=== PATIENT | male | born 1975 | race Caucasian/White ===

== ENCOUNTER → 2019-01-27 05:54 | Outpatient (CLI) | payer OTHER, SELFPAY ==
[2013-10-21 10:42] VITALS: BMI 30.9
[2019-01-27 08:07] LABS: ALB/GLOB Ratio 1.1 RATIO (0.9-2.4); AST(SGOT) 31 U/L (15-37); Alanine Aminotransfer ALT/SGPT 58 U/L (16-61); Alkaline Phosphatase 64 U/L (45-117); Anion Gap 8 (5-15); BUN 16 mg/dL (7-18); BUN/Creat Ratio 18.2 RATIO (10-20); Calcium,Total 8.6 mg/dL (8.5-10.1); Chloride 108 mmol/L (98-107); Cholesterol 120 mg/dL (200); Creatinine, Serum 0.88 mg/dL (0.70-1.30); EST Glomerular Filtration Rate 101 mL/min (>60); Est Glom Filt Rate - Afr Amer 122 mL/min (>60); Globulin 3.6 g/dL (2.2-4.2); Glucose 94 mg/dL (74-106); High Density Lipoprotein 40 mg/dL; Protein, Total 7.6 g/dL (6.4-8.2); Sodium Level 143 mmol/L (136-145); Thyroid Stim Hormone (TSH) 3.02 uIU/mL (0.358-3.74); Triglycerides 145 mg/dL; Very Low Density Lipoprotein 29 mg/dL (5-40)
[2019-02-02 12:18] LABS: Vitamin D 1,25-Dihydroxy 41.1 pg/mL (19.9-79.3)
== END ==
PROVIDERS: Family Provider Family Medicine; PCP Family Medicine; Referring Provider Family Medicine; Visit Provider Family Medicine
DX: I10 Essential (primary) hypertension (principal); E78.5 Hyperlipidemia, unspecified
CPT/HCPCS: 36415; 80053; 80061; 82652; 84443

== ENCOUNTER → 2019-09-30 12:39 | Outpatient (CLI) | payer OTHER, SELFPAY ==
--- NOTE | 2019-09-30 12:59 | CT_ITS ---
STUDY: CT ABDOMEN AND PELVIS WITH CONTRAST REASON FOR EXAM: Male, 44 years old. Intermittent right lower quadrant pain for 2 weeks RADIATION DOSAGE (If Supplied By Facility): CTDIvol = ( 16.41 ) mGy, DLP = ( 1260.86 ) mGycm TECHNIQUE: Transaxial images were obtained from the dome of the diaphragm to the symphysis pubis with oral contrast. IV/Oral Isovue 300 100CC was administered. Sagittal and coronal images were reconstructed. Individualized dose optimization techniques were used for this CT. COMPARISON: None. FINDINGS: The visualized lung bases are unremarkable. The visualized portions of the heart are within normal limits. Normal liver. Normal gallbladder and extrahepatic biliary system. Normal spleen. Normal pancreas. Normal bilateral adrenal glands. Normal right kidney. Normal left kidney. Normal visualized stomach. Normal small intestine. Normal colon. The appendix is visualized and appears normal. Normal abdominal aorta. Normal inferior vena cava. Normal retroperitoneum. Normal urinary bladder. Normal abdominal wall. Normal osseous structures. CT/Abdomen/Pelvis WITH Contrast IMPRESSION: Normal enhanced CT of the abdomen and pelvis. Electronically Signed: Sridevi Cochran MD at 15:37 EDT , Service support ,
[2019-09-30 13:00] LABS: Absolute Lymphocyte Count 2.28 X10^3/uL (0.83-4.51); Absolute Neutrophil Count 4.7 X10^3/uL (2.0-7.7); Basophil# 0.04 X10^3/uL; Basophil% 0.5 % (0-1); Eosinophil# 0.16 X10^3/uL; Hematocrit 44.3 % (40-54); Hemoglobin 15.1 g/dL (13.0-16.5); Lymphocyte # 2.28 X10^3/ul (4.0); Mean Corp Hgb Conc 34.1 g/dL (32-36); Mean Corpuscular Hgb 29.6 pg (27.0-32.0); Mean Corpuscular Volume 86.9 fL (80-94); Mean Platelet Vol. 9.2 fl (6.2-12.0); Monocyte# 0.62 X10^3/uL; Monocyte% 7.9 % (0-10); NRBC Flagged by Analyzer 0 % (0-5); Neutrophil # 4.73 X10^3/uL (2.7-7.7); Neutrophil % 60.3 % (47-70); Platelet Count 316 K/mm3 (150-450); RBC Distribution Width CV 12.6 % (11.6-14.6); RBC Distribution Width SD 39.8 fl (35.1-43.9); White Blood Count 7.9 K/mm3 (4.4-11.0)
[2019-09-30 13:15] LABS: ALB/GLOB Ratio 1.2 RATIO (0.9-2.4); AST(SGOT) 30 U/L (15-37); Alanine Aminotransfer ALT/SGPT 50 U/L (16-61); Albumin, Serum 4.4 g/dL (3.2-5.0); Alkaline Phosphatase 78 U/L (45-117); Anion Gap 5 (5-15); BUN 10 mg/dL (7-18); BUN/Creat Ratio 11.8 RATIO (10-20); Calcium,Total 9.3 mg/dL (8.5-10.1); Chloride 106 mmol/L (98-107); Creatinine, Serum 0.84 mg/dL (0.70-1.30); EST Glomerular Filtration Rate 105 mL/min (>60); Est Glom Filt Rate - Afr Amer 127 mL/min (>60); Globulin 3.6 g/dL (2.2-4.2); Glucose 97 mg/dL (74-106); Potassium 3.8 mmol/L (3.5-5.1); Sodium Level 138 mmol/L (136-145)
== END ==
PROVIDERS: Family Provider Family Medicine; PCP Family Medicine; Referring Provider Family Medicine; Visit Provider Family Medicine
DX: R10.31 Right lower quadrant pain (principal)
CPT/HCPCS: 36415; 74177; 80053; 85025; Q9967

== ENCOUNTER → 2020-06-27 05:59 | Outpatient (CLI) | payer OTHER, SELFPAY ==
[2013-10-21 10:42] VITALS: BMI 30.9
[2020-06-27 07:28] LABS: ALB/GLOB Ratio 1.2 RATIO (0.9-2.4); AST(SGOT) 27 U/L (15-37); Alanine Aminotransfer ALT/SGPT 57 U/L (16-61); Albumin, Serum 4.1 g/dL (3.2-5.0); Alkaline Phosphatase 77 U/L (45-117); Anion Gap 4 (5-15); BUN 19 mg/dL (7-18); BUN/Creat Ratio 22.3 RATIO (10-20); Calcium,Total 9.3 mg/dL (8.5-10.1); Chloride 109 mmol/L (98-107); Cholesterol 158 mg/dL (200); Creatinine, Serum 0.85 mg/dL (0.70-1.30); EST Glomerular Filtration Rate 104 mL/min (>60); Est Glom Filt Rate - Afr Amer 126 mL/min (>60); Globulin 3.5 g/dL (2.2-4.2); Glucose 97 mg/dL (74-106); High Density Lipoprotein 35 mg/dL; Protein, Total 7.6 g/dL (6.4-8.2); Sodium Level 141 mmol/L (136-145); Triglycerides 588 mg/dL
== END ==
PROVIDERS: PCP Family Medicine; Referring Provider Family Medicine; Visit Provider Family Medicine
DX: E78.5 Hyperlipidemia, unspecified (principal)
CPT/HCPCS: 36415; 80053; 80061

== ENCOUNTER → 2020-08-18 07:26 | Outpatient (CLI) | payer OTHER, SELFPAY ==
[2020-08-18 08:48] LABS: Cholesterol 161 mg/dL (200); High Density Lipoprotein 39 mg/dL; Triglycerides 205 mg/dL; Very Low Density Lipoprotein 41 mg/dL (5-40)
== END ==
PROVIDERS: PCP Family Medicine; Referring Provider Family Medicine; Visit Provider Family Medicine
DX: E78.00 Pure hypercholesterolemia, unspecified (principal)
CPT/HCPCS: 36415; 80061

== ENCOUNTER → 2021-02-18 16:34 | Outpatient (CLI) | payer OTHER, SELFPAY ==
[2013-10-21 10:42] VITALS: BMI 30.9
--- NOTE | 2021-02-18 16:36 | RAD_ITS ---
STUDY: X-RAY - LEFT CALCANEUS REASON FOR EXAM: Male, 45 years old. left heel pain TECHNIQUE: 2 view(s) of the calcaneus were obtained. COMPARISON: None. FINDINGS: No acute fracture, dislocation or osseous destruction. Plantar spur. No significant soft tissue swelling. RAD/Calcaneus min 2 Views IMPRESSION: Left calcaneous intact Plantar spur Electronically Signed: Lio Dixon DO at 11:07 EDT Tel , Service support ,
== END ==
PROVIDERS: PCP Family Medicine; Referring Provider Family Medicine; Visit Provider Family Medicine
DX: M79.672 Pain in left foot (principal)
CPT/HCPCS: 73650

== ENCOUNTER → 2021-03-02 06:56 | Outpatient (CLI) | payer OTHER, SELFPAY ==
[2021-03-02 07:46] LABS: Anion Gap 3 (5-15); BUN 13 mg/dL (7-18); Calcium,Total 8.9 mg/dL (8.5-10.1); Chloride 106 mmol/L (98-107); Cholesterol 126 mg/dL (200); Creatinine, Serum 0.81 mg/dL (0.70-1.30); EST Glomerular Filtration Rate 109 mL/min (>60); Est Glom Filt Rate - Afr Amer 132 mL/min (>60); Glucose 103 mg/dL (74-106); High Density Lipoprotein 36 mg/dL; Potassium 3.8 mmol/L (3.5-5.1); Sodium Level 137 mmol/L (136-145); Triglycerides 245 mg/dL; Very Low Density Lipoprotein 49 mg/dL (5-40)
== END ==
PROVIDERS: PCP Family Medicine; Referring Provider Family Medicine; Visit Provider Family Medicine
DX: I10 Essential (primary) hypertension (principal)
CPT/HCPCS: 36415; 80048; 80061

== ENCOUNTER 2022-02-01 08:24 | Outpatient (CLI) | payer OTHER, SELFPAY ==
[2022-02-01 09:58] LABS: ALB/GLOB Ratio 1.2 RATIO (0.9-2.4); AST(SGOT) 29 U/L (15-37); Alanine Aminotransfer ALT/SGPT 62 U/L (16-61); Albumin, Serum 3.9 g/dL (3.2-5.0); Alkaline Phosphatase 71 U/L (45-117); Anion Gap 2 (5-15); BUN 14 mg/dL (7-18); BUN/Creat Ratio 15.6 RATIO (10-20); Calcium,Total 9.1 mg/dL (8.5-10.1); Chloride 109 mmol/L (98-107); Cholesterol 143 mg/dL (200); EST Glomerular Filtration Rate 97 mL/min (>60); Est Glom Filt Rate - Afr Amer 118 mL/min (>60); Globulin 3.3 g/dL (2.2-4.2); Glucose 104 mg/dL (74-106); High Density Lipoprotein 39 mg/dL; Potassium 4.1 mmol/L (3.5-5.1); Protein, Total 7.2 g/dL (6.4-8.2); Sodium Level 139 mmol/L (136-145); Triglycerides 218 mg/dL; Very Low Density Lipoprotein 44 mg/dL (5-40)
== END 2022-02-01 23:59 | disposition home or self-care (01) ==
LOC: LAB 08:25
PROVIDERS: PCP Family Medicine; Referring Provider Family Medicine; Visit Provider Family Medicine
DX: E78.5 Hyperlipidemia, unspecified (principal)
CPT/HCPCS: 36415; 80053; 80061

== ENCOUNTER → 2022-09-08 | Outpatient (CLI) | payer OTHER, SELFPAY ==
--- NOTE | 2022-09-08 17:05 | RAD_ITS ---
STUDY: X-RAY - LEFT SHOULDER REASON FOR EXAM: Male, 47 years old. Pain. TECHNIQUE: 4 view(s) of the shoulder. COMPARISON: None. FINDINGS: Normal glenohumeral articulation. Mild arthrosis of the AC joint. Normal acromion. Bone island of the proximal humerus. Scattered focal soft tissue calcifications. Normal visualized pulmonary apex. RAD/Shoulder min 2 Views IMPRESSION: Arthrosis of the AC joint with scattered soft tissue calcification. No acute finding or erosive change. Electronically Signed: Jose Armas, at 11:01 EDT ,
== END | disposition home or self-care (01) ==
LOC: MTRAD 17:03
PROVIDERS: PCP Family Medicine; Referring Provider Family Medicine; Visit Provider Family Medicine
DX: M25.512 Pain in left shoulder (principal)
CPT/HCPCS: 73030

== ENCOUNTER → 2022-10-09 | Outpatient (CLI) | payer OTHER, SELFPAY ==
[2022-10-09 10:13] LABS: Anion Gap 4 (5-15); BUN 15 mg/dL (7-18); BUN/Creat Ratio 17.3 RATIO (10-20); Calcium,Total 9.2 mg/dL (8.5-10.1); Chloride 106 mmol/L (98-107); Cholesterol 137 mg/dL (200); Creatinine, Serum 0.87 mg/dL (0.70-1.30); EST Glomerular Filtration Rate 101 mL/min (>60); Est Glom Filt Rate - Afr Amer 122 mL/min (>60); Glucose 99 mg/dL (74-106); High Density Lipoprotein 31 mg/dL; Potassium 4.4 mmol/L (3.5-5.1); Sodium Level 138 mmol/L (136-145); Triglycerides 386 mg/dL; Very Low Density Lipoprotein 77 mg/dL (5-40)
== END | disposition home or self-care (01) ==
LOC: LAB 07:00
PROVIDERS: PCP Family Medicine; Visit Provider Family Medicine
DX: Z00.00 Encounter for general adult medical examination without abnormal findings (principal)
CPT/HCPCS: 36415; 80048; 80061

== ENCOUNTER → 2022-11-27 | Outpatient (CLI) | payer OTHER, SELFPAY | END | disposition home or self-care (01) | PROVIDERS: PCP Family Medicine; Visit Provider Nurse Practitioner Acute Care | DX: G47.33 Obstructive sleep apnea (adult) (pediatric) (principal) | CPT/HCPCS: 95811 ==

== ENCOUNTER → 2022-12-18 | Outpatient (CLI) | payer OTHER, SELFPAY | END | disposition home or self-care (01) | LOC: SL 13:30 | PROVIDERS: PCP Family Medicine; Visit Provider Nurse Practitioner Acute Care | DX: G47.33 Obstructive sleep apnea (adult) (pediatric) (principal) ==

== ENCOUNTER → 2023-09-07 | Outpatient (CLI) | payer OTHER, SELFPAY ==
[2023-09-07 08:25] LABS: ALB/GLOB Ratio 1.1 RATIO (0.9-2.4); AST(SGOT) 26 U/L (15-37); Alanine Aminotransfer ALT/SGPT 49 U/L (16-61); Albumin, Serum 3.8 g/dL (3.2-5.0); Alkaline Phosphatase 78 U/L (45-117); Anion Gap 8 (5-15); BUN 15 mg/dL (7-18); BUN/Creat Ratio 19.2 RATIO (10-20); Calcium,Total 8.6 mg/dL (8.5-10.1); Chloride 106 mmol/L (98-107); Cholesterol 143 mg/dL (200); Creatinine, Serum 0.78 mg/dL (0.70-1.30); EST Glomerular Filtration Rate 113 mL/min (>60); Est Glom Filt Rate - Afr Amer 136 mL/min (>60); Globulin 3.4 g/dL (2.2-4.2); Glucose 110 mg/dL (74-106); High Density Lipoprotein 32 mg/dL; Potassium 4.2 mmol/L (3.5-5.1); Protein, Total 7.2 g/dL (6.4-8.2); Sodium Level 142 mmol/L (136-145); Triglycerides 337 mg/dL; Very Low Density Lipoprotein 67 mg/dL (5-40)
== END | disposition home or self-care (01) ==
LOC: LAB 05:58
PROVIDERS: PCP Family Medicine; Referring Provider Family Medicine; Visit Provider Family Medicine
DX: Z00.00 Encounter for general adult medical examination without abnormal findings (principal)
CPT/HCPCS: 36415; 80053; 80061

== ENCOUNTER 2024-01-12 13:31 | Emergency (ER) | payer OTHER, SELFPAY ==
[2024-01-12 13:32] VITALS: BP 137/102; PULSE 107; RESP 18; TEMP 35.8; O2SAT 97; BMI 35.0
--- NOTE | 2024-01-12 14:26 | EDS_ITS ---
HPI History of Present Illness Chief Complaint: Back Informant: patient Onset/Context/Timing Onset: Days (2) Context: Sudden Onset Timing: Continuous Quality: Throbbing Location: Lumbar Worsened by: improves with Movement Relieved by: Remaining Still Associated Symptoms Associated Symptoms: Negative for Numbness, Tingling, Radiation to Right Leg, Radiation to Left Leg, Fever, Abdominal Pain, Dysuria, Unable to Ambulate, Unable to Transfer, Urinary Retention, Urinary Incontinence, Constipation or Fecal Incontinence Narrative Narrative: Patient presents with back pain that has been getting progressively worse over the past 2 days. Patient states he woke up with it. Patient states it has been constant. Patient describes it as throbbing. Patient states it is mainly over his lower lumbar area. Patient states it is worse with certain movements. Patient states it is better when he is able to lay flat. Patient denies any radiation of the pain down his legs. Patient denies any abdominal pain. Patient denies any bowel or bladder changes. Patient denies any saddle anesthesia. [facility] Medical History (Updated 01/12/24 @ 14:[address] Lio Fernandez DO) Compression fracture of T8 vertebra GERD with apnea Hyperlipidemia Home Medications rosuvastatin 10 mg tablet 20 mg PO QHS 10/20/13 [History Last Taken 10/20/13 22:00] fluticasone propionate 50 mcg/actuation nasal spray,suspension 1 spray intranasal BID 11/12/22 [History Last Taken Unknown] omeprazole 20 mg capsule,delayed release 20 mg PO DAILY 11/12/22 [History Last Taken Unknown] cyclobenzaprine 10 mg tablet 10 mg PO QHS PRN PRN Muscle Spasm #10 TABLETS 01/12/24 [Rx Last Taken Unknown] hydrocodone-acetaminophen 5-325mg 5mg-325mg 1 tab PO Q6H PRN PRN Pain 3 days #10 TABLETS 01/12/24 [Rx Last Taken Unknown] Allergy/AdvReac Type Severity Reaction Status Date / Time No Known Allergies Allergy Verified 01/12/24 13:32 Family History Father Cancer LUNG CA Mother CVA (cerebral vascular accident) Surgical History no surgical history no surgical history Social History household members: spouse housing: house Smoking Status: Former smoker Tobacco: How many years used: 3 how long ago did patient quit smokin substance use type: does not use ROS ROS ED Constitutional Constitutional ED: Denies chills or fever(s) Eyes Eyes: Denies blurry vision or change in vision ENT ENT ED: Denies rhinorrhea or sore throat Cardiovascular Cardiovascular: Denies chest pain or palpitations Respiratory/Chest Respiratory/Chest: Denies cough or dyspnea Gastrointestinal Gastrointestinal: Denies nausea or vomiting Genitourinary Genitourinary ED: Denies dysuria or hematuria Musculoskeletal Musculoskeletal: Reports back pain; Denies neck pain Integumentary Denies abscess or rash Neurologic Neurologic: Denies headache(s) or weakness Allergic/Immunologic Allergic/Immunologic ED: Denies mouth swelling or urticaria EXAM Physical Exam Const Vital Signs: 01/12/24 13:32 Temperature 96.4 F L Temperature Source Temporal Pulse Rate 107 H Respiratory Rate 18 Blood Pressure 137/102 H Blood Pressure Mean 113 Pulse Ox 97 Oxygen Delivery Method Room Air Positive well nourished and well developed General Appearance ED: well developed and NAD HEENT Reports moist mucous membranes Neck supple and no JVD Back/Spine Back/Spine Narrative: There is tenderness over the lower lumbar paraspinal muscles. There is no midline tenderness. There is no bony crepitance or step-off. There is no edema or ecchymosis. Range of motion was limited in all motions of the lumbar spine secondary to pain. Strength is 5/5 bilaterally in the lower extremities. There are no sensory deficits noted. Deep tendon reflexes are 2/4 bilaterally in the lower extremities. Lumbar Spine / Lower Back: ROM limited and straight leg raise negative bilaterally Neuro oriented x3 and no sensory deficits noted Sensorium / Orientation: alert Motor Exam: strength 5/5 throughout Deep Tendon Reflexes: Rt Patellar (L4): 2+, Lt Patellar (L4): 2+, Rt Ankle (S1): 2+ and Lt Ankle (S1): 2+ Deep Tendon Reflexes Back: Rt Patellar (L4): 2+, Lt Patellar (L4): 2+, Rt Ankle (S1): 2+ and Lt Ankle (S1): 2+ Psych mental status grossly normal MDM MDM MDM Narrative Medical decision making narrative: Patient was advised that this is most likely a muscular strain. Patient had a question about getting an MRI today. Patient was advised that there is no indication for emergent MRI. Patient was advised to follow-up with his primary care physician in 5 to 7 days for further evaluation. Patient was given an injection of Toradol and Norflex here. Patient was given a prescription for a short course of [place] and Flexeril to take at bedtime. Patient was instructed to continue using ice to the area. Patient understood and was agreeable with the plan. All questions were answered. Discharge Plan Triage Chief Complaint: Back ED Provider: Lio Fernandez Dx/Rx/DC Orders Clinical Impression: Acute myofascial strain of lumbosacral region, Hyperlipidemia Instructions: ED Back Pain (Acute or Chronic), ED Back Spasm, No Trauma, ED Back Sprain/Strain Prescriptions: New cyclobenzaprine [cyclobenzaprine] 10 mg tablet 10 mg PO QHS PRN PRN (Reason: Muscle Spasm) Qty: 10 0RF hydrocodone-acetaminophen [hydrocodone-acetaminophen] 5-325 mg tablet 1 tab PO Q6H PRN PRN (Reason: Pain) 3 Days Qty: 10 0RF No Action omeprazole 20 mg capsule,delayed release(DR/EC) 20 mg PO DAILY fluticasone propionate 50 mcg/actuation spray,suspension 1 spray intranasal BID Rx Instructions: administer into each nostril rosuvastatin 10 MG tablet 20 mg PO QHS Primary Care Provider: Ramiro Thrasher Referrals: Ramiro Thrasher MD [Primary Care Provider] - 3-5 Days Disposition Disposition: Home, Self Care
[2024-01-12] MEDS: Orphenadrine 60 MG/2 ML Ampul IM (14:45)
[2024-01-12] MEDS: Ketorolac 60 MG/2 ML Vial IM (14:45)
[2024-01-12 15:15] VITALS: BP 140/98; PULSE 100; RESP 16; TEMP 36.1; O2SAT 100
== END 2024-01-12 15:16 | disposition home or self-care (01) ==
LOC: ED 14:35
PROVIDERS: Emergency Provider Emergency Medicine; PCP Family Medicine; Visit Provider Emergency Medicine
DX: S39.012A Strain of muscle, fascia and tendon of lower back, initial encounter (principal); E78.5 Hyperlipidemia, unspecified; Z87.891 Personal history of nicotine dependence; K21.9 Gastro-esophageal reflux disease without esophagitis; Z79.899 Other long term (current) drug therapy
CPT/HCPCS: 96372; 99282

== ENCOUNTER → 2024-09-10 | Outpatient (CLI) | payer OTHER, SELFPAY ==
[2024-09-10 09:48] LABS: ALB/GLOB Ratio 1.1 RATIO (0.9-2.4); AST(SGOT) 22 U/L (15-37); Alanine Aminotransfer ALT/SGPT 45 U/L (16-61); Albumin, Serum 3.9 g/dL (3.2-5.0); Alkaline Phosphatase 83 U/L (45-117); Anion Gap 6 (5-15); BUN 17 mg/dL (7-18); BUN/Creat Ratio 19.5 RATIO (10-20); Calcium,Total 8.8 mg/dL (8.5-10.1); Chloride 111 mmol/L (98-107); Cholesterol 138 mg/dL (200); Creatinine, Serum 0.87 mg/dL (0.70-1.30); EST Glomerular Filtration Rate 99 mL/min (>60); Est Glom Filt Rate - Afr Amer 120 mL/min (>60); Globulin 3.4 g/dL (2.2-4.2); Glucose 106 mg/dL (74-106); High Density Lipoprotein 39 mg/dL; Protein, Total 7.3 g/dL (6.4-8.2); Sodium Level 142 mmol/L (136-145); Triglycerides 228 mg/dL; Very Low Density Lipoprotein 46 mg/dL (5-40)
== END | disposition home or self-care (01) ==
LOC: LAB 08:29
PROVIDERS: PCP Family Medicine; Referring Provider Family Medicine; Visit Provider Family Medicine
DX: E78.5 Hyperlipidemia, unspecified (principal)
CPT/HCPCS: 36415; 80053; 80061

== ENCOUNTER → 2025-11-22 | Outpatient (CLI) | payer OTHER, SELFPAY ==
--- OUTSIDE RECORDS SUMMARY | 2025-11-22 08:14 | XMS RPT_ITS | CCD ---
Author Organization [facility] Care Team Providers Care It Security Architect Name Role Phone Dr. Ramiro Thrasher Primary Care Provider Dr. Ramiro Thrasher Referring Provider Beverly BABB, OZZY Yi Attending Provider Ramiro Thrasher Primary Care Unavailable Gerardo Bowden Attending Unavailable Medications Current Medications Medication Drug Class(es) Dates Sig (Normalized) Sig (Original) acetaminophen 325 mg / HYDROcodone bitartrate 5 mg oral tablet (1 source) Opioid Agonist Start: 01-12-2024 take 1 tablet by mouth every six hours as needed Hydrocodone-Acetami nophen Active 1 TABLET PO EVERY 6 HOURS NEEDED 09 01January 12, 2024 cyclobenzaprine hydrochloride 10 mg oral tablet (1 source) Muscle Relaxant Start: 01-12-2024 take 10 mg by mouth at bedtime as needed Cyclobenzaprine Active 10 MG PO AT BEDTIME NEEDED January 12, 2024 2:31pm fluticasone propionate 0.05 mg/actuat metered dose nasal spray (3 sources) Corticosteroid Start: 11-12-2022 take 1 spray(s) nasal route twice daily Fluticasone Propionate Active 1 SPRAY INTRANASAL TWICE A DAY November 12, 2022 12:00am administer into each nostril omeprazole 20 mg delayed release oral capsule (3 sources) Proton Pump Inhibitor Start: 11-12-2022 take 20 mg by mouth once daily Omeprazole Active 20 MG PO DAILY November 12, 2022 12:00am rosuvastatin calcium 10 mg oral tablet (5 sources) HMG-CoA Reductase Inhibitor Start: 10-20-2013 take 20 mg by mouth at bedtime Rosuvastatin Active 20 MG PO AT BEDTIME October 20, 2013 12:00am Completed/Discontinued Medications Medication Drug Class(es) Dates Sig (Normalized) Sig (Original) fenofibrate 145 mg oral tablet (5 sources) Peroxisome Proliferator Receptor alpha Agonist Start: 3 End: 2 take 145 mg by mouth once daily Fenofibrate Nanocrystallized Discontinued 145 MG PO DAILY October 20, 2013 12:00am November 12, 2022 2:25pm hydroCHLOROthiazide 25 mg oral tablet (5 sources) Thiazide Diuretic Start: 3 End: 2 take 12.5 mg by mouth once daily Hydrochlorothiazide Discontinued 12.5 MG PO DAILY October 20, 2013 12:00am November 12, 2022 2:24pm loratadine 10 mg oral tablet (5 sources) Start: 3 End: 2 take 1 tablet by mouth once daily Loratadine (Claritin) 10 MG tablet Discontinued 10 MG PO DAILY October 20, 2013 12:00am November 12, 2022 2:24pm nabumetone 750 mg oral tablet (5 sources) Nonsteroidal Anti-inflammator y Drug Start: 3 End: 2 take 750 mg by mouth twice daily Nabumetone Discontinued 750 MG PO TWICE A DAY October 21, 2013 12:00am November 12, 2022 2:25pm raNITIdine 150 mg oral tablet (5 sources) Histamine-2 Receptor Antagonist Start: 3 End: 2 take 1 tablet by mouth twice daily Ranitidine (Zantac) 150 MG tablet Discontinued 150 MG PO TWICE A DAY October 20, 2013 12:00am November 12, 2022 2:23pm Problems Problem Classification Problem Date Documented Da te Episodic/Chronic Disorders of lipid metabolism (3 sources) Hyperlipidemia; Translations: [Hyperlipidemia, unspecified] 11-12-2022 Chronic Esophageal disorders (3 sources) Gastroesophageal reflux disease with apnea; Translations: [Gastro-esophageal reflux disease without esophagitis] 11-12-2022 Chronic Other nutritional; endocrine; and metabolic disorders (3 sources) Body mass index 30+ - obesity; Translations: [Body mass index (BMI) 33.0-33.9, adult] 11-12-2022 Chronic Other nutritional; endocrine; and metabolic disorders (2 sources) Body mass index (BMI) 33.0-33.9, adult; Translations: [Body Mass Index 33.0-33.9, adult] Chronic Other upper respiratory disease (3 sources) Seasonal allergic rhinitis; Translations: [Other seasonal allergic rhinitis] 11-12-2022 Chronic Residual codes; unclassified (3 sources) Obstructive sleep apnea syndrome; Translations: [Obstructive sleep apnea (adult) (pediatric)] 11-12-2022 Chronic Residual codes; unclassified (2 sources) Obstructive sleep apnea (adult) (pediatric); Translations: [Obstructive sleep apnea (adult)(pediatric)] Chronic Sprains and strains (1 source) Lower back injury; Translations: [Strain of muscle, fascia and tendon of lower back, initial encounter] 01-12-2024 Episodic Results Test Name Value Interpretation Reference Range Facility Basophil percentageOrdered B y: Dr. Thrasher on 10-09-2022 Chloride [Moles/Vol] 106 mmol/L 98-107 [facility] Cholesterol [Mass/Vol] 137 mg/dL <200 [facility] Comment on above: <200 mg/dL Desirable 200-240 mg/dL Borderline >240 mg/dL High Risk Glucose [Mass/Vol] 99 mg/dL 74-106 [facility] Potassium [Moles/Vol] 4.4 mmol/L 3.5-5.1 [facility] Sodium [Moles/Vol] 138 mmol/L 136-145 [facility] Triglyceride [Mass/Vol] 386 mg/dL <199 [facility] Comment on above: The drugs N-Acetylcy steine and Metamizole may falsely depress this assay.Serum Triglycerides Reference Interval Normal <150 mg/dL Borderline high 150 - 199 mg/dL High 200 - 499 mg/dL Very High > or = 500 mg/dL Laboratory - Chemistry and C hemistry - challengeOrdered By: Dr. Thrasher on 10-09-2022 CO2 [Moles/Vol] 28.0 mmol/L 21.0-32.0 [facility] Urea nitrogen/Creatinine [Mass ratio] 17.3 mg/mg 10- [facility] No Panel InformationOrdered By: Dr. Thrasher on 10-09-2022 Estimated GFR (MDRD) Amer 122 mL/min >60 [facility] Comment on above: GFR Calc Estimated GFR (MDRD) Non-Af Amer 101 mL/min >60 [facility] Comment on above: Non- GFR Calc Serum or plasma calcium tapan urement (mass/volume)Ordered By: Dr. Thrasher on 10-09-2022 Calcium [Mass/Vol] 9.2 mg/dL 8.5-10.1 [facility] Serum or plasma cholesterol in HDL measurement (mass/volume)Ordered By: Dr. Thrasher on 10-09-2022 Cholesterol in HDL [Mass/Vol] 31 mg/dL >40 [facility] Comment on above: The drugs N-Acetylcy steine and Metamizole may falsely depress this assay. Reference Range HDL <40 mg/dL Low HDL Cholesterol HDL >or= 60 mg/dL High HDL Cholesterol Serum or plasma cholesterol in VLDL measurement (mass/volume)Ordered By: Dr. Thrasher on 10-09-2022 Cholesterol in VLDL [Mass/Vol] 77 mg/dL 5-40 [facility] Serum or plasma creatinine m easurement (mass/volume)Ordered By: Dr. Thrasher on 10-09-2022 Creatinine [Mass/Vol] 0.87 mg/dL 0.70-1.30 [facility] Comment on above: The validity of the calculated GFR & GFRAA in patients over 70 years has not been determined. Clinical correlation is essential. Serum or plasma low density lipoprotein (LDL) cholesterol measurement (mass/volume)Ordered By: Dr. Thrasher on 10-09-2022 Cholesterol in LDL [Mass/Vol] 29 mg/dL 0-130 [facility] Serum or plasma urea nitroge n measurement (mass/volume)Ordered By: Dr. Thrasher on 10-09-2022 Urea nitrogen [Mass/Vol] 15 mg/dL 7-18 [facility] Thin prep Papanicolaou smear with manual screeningOrdered By: Dr. Thrasher on 10-09-2022 Thin prep Papanicolaou smear with manual screening 4 5-15 [facility] Vital Signs Date Time Vital Sign Value Performing Clinician Hector mistry 01-12-2024 15:15-0500 Body temperature 97 [degF] [facility] 01-12-2024 15:15-0500 Diastolic blood pressure 98 mm[Hg] [facility] 01-12-2024 15:15-0500 Heart rate 100 /min [facility] 01-12-2024 15:15-0500 Respiratory rate 16 /min [facility] 01-12-2024 15:15-0500 SaO2% (BldA) [Mass fraction] 100 % [facility] 01-12-2024 15:15-0500 Systolic blood pressure 140 mm[Hg] [facility] 01-12-2024 13:32-0500 Body height 175.26 cm [facility] 01-12-2024 13:32-0500 Body mass index (BMI) [Ratio] 35 kg/m2 [facility] 01-12-2024 13:32-0500 Body weight 107.54 kg [facility] 11-12-2022 14:20-0500 Body height 175.[address] Ramiro Thrasher Work Phone: [facility] 11-12-2022 14:20-0500 Body mass index (BMI) [Ratio] 33.5 kg/m2 Dr. Ramiro Thrasher Work Phone: [facility] 11-12-2022 14:20-0500 Body temperature 98.6 [degF] Dr. Ramiro Thrasher Work Phone: [facility] 11-12-2022 14:20-0500 Body weight 102.[address] Ramiro Thrasher Work Phone: [facility] 11-12-2022 14:20-0500 Diastolic blood pressure 95 mm[Hg] Dr. Ramiro Thrasher Work Phone: [facility] 11-12-2022 14:20-0500 Heart rate 73 /min Dr. Ramiro Thrasher Work Phone: [facility] 11-12-2022 14:20-0500 Respiratory rate 18 /min Dr. Ramiro Thrasher Work Phone: [facility] 11-12-2022 14:20-0500 SaO2% (BldA) [Mass fraction] 96 % Dr. Ramiro Thrasher Work Phone: [facility] 11-12-2022 14:20-0500 Systolic blood pressure 141 mm[Hg] Dr. Ramiro Thrasher Work Phone: [facility] Encounters Encounter Date Encounter Type Care Provider Facility Start: 12-15-2025 ambulatory Ramiro Thrasher Facility:[facility] Start: 01-12-2024 End: 01-12-2024 Emergency department patient visit [facility]Emergency Department Work Phone: Start: 12-18-2022 End: 12-18-[address] Ramiro Thrasher Work Phone: [facility] Work Phone: Start: 12-18-2022 End: 12-18-[address] Ramiro Thrasher Work Phone: [facility]-Sleep Lab Start: 11-27-2022 End: 11-27-[address] Ramiro Thrasher Work Phone: [facility] Work Phone: Start: 11-27-2022 End: 11-27-[address] Ramiro Thrasher Work Phone: [facility]Sleep [facility] Start: 11-12-2022 End: 11-12-[address] Ramiro Thrasher Work Phone: [facility]-Pulmonary Medicine [facility] Start: 10-09-2022 End: 10-09-2022 ambulatory [facility] Work Phone: Start: 10-09-2022 End: 10-09-2022 Patient encounter procedure [facility]-Laboratory Start: 09-08-2022 End: 09-08-2022 ambulatory [facility] Work Phone: Start: 09-08-2022 End: 09-08-2022 Patient encounter procedure [facility]-Radiology, [place] Procedures Date Procedure Procedure Detail Performing Clinician Start: 09-08-2022 Plain X-ray of shoulder Plan of Treatment Date Care Activity Detail Author Start: 01-12-2024 [facility] Patient Education ED Back Pain ( Acute or Chronic) ED Back Spasm, No Trauma ED Back Sprain/Strain [facility] Work Phone: Patient referral [facility] Work Phone: Payers Date Payer Category Payer Self-pay [id number] Unknown [id number] Unknown [id number] Unknown [facility] [id number] Unknown [id number] Social History Date Type Detail Facility Start: 10-21-2013 End: 01-12-2024 Tobacco smoking status NHIS Unknown if ever smoked [facility] Start: 1975 Sex Assigned At Male [facility] Evaluation note Note Date & Type Note Facility Evaluation note No assessment information availa ble [facility] Work Phone: Evaluation note Note Date & Type Note Facility Evaluation note Diagnosis Onset Date BMI 33.0-33.9,adult acute Obstructive sleep apnea acut e [facility] Work Phone: Advance Directives No Advanced Directives Records Found Advance Directive Response Recorded Date/ Time Advance Directives No September 4:27pm Living Will No October 20, 2 013 4:27pm Power of Finish Mender No October 20, 2013 4:27pm Advance Directive Response Recorded Date/ Time Advance Directives No September 3:27pm Living Will No October 20, 2 013 3:27pm Power of Finish Mender No October 20, 2013 3:27pm Advance Directive Response Recorded Date/ Time Advance Directives No September 3:27pm Living Will No January 12, 2 024 1:31pm Power of Finish Mender No January 12, 2024 1:31pm Chief Complaint and Reason for Visit Chief Complaint Obstructive sleep ap mauri [place] Reason for Visit BMI 33.0-33.9,adult Obstructive sleep apnea Chief Complaint Obstructive sleep ap mauri [place]; BIPAP INVENTORY TAGGED Reason for Visit BMI 33.0-33.9,adult Obstructive sleep apnea Chief Complaint back pain Family History No Family History Records Found Relationship Condition Age at Onset Recorded Date/T ashli father Malignant neoplasm Unknown mother Cerebrovascular accident (CVA) Unknown Summary Purpose Additional Source Comments Goals (unrecognized section and content) Goals may be documented in a n alternate sectionGoals may be documented in an alternate sectionGoals may be documented in an alternate sectionGoals may be documented in an alternate sectionGoals may be documented in an alternate section Care Teams (unrecognized sec tion and content) Team Status: Active Member Role Status Dates Dr. Ramiro Thrasher MD Family Provider Active Dr. Ramiro Thrasher MD Primary Care Provider Active Team Status: Inactive Member Role Status Dates Dr. Ramiro Thrasher MD Primary Care Provider, Referring Provider Active Kassidy Paul AGRICULTURAL EQUIPMENT SALESPERSON, AGRICULTURAL EQUIPMENT SALESPERSON-C Attending Provider Active Team Status: Inactive Member Role Status Dates Dr. Ramiro Thrasher MD Primary Care Provi camila, Attending Provider, Referring Provider Active Team Status: Inactive Member Role Status Dates Dr. Ramiro Thrasher MD Primary Care Provider, Attending Provider Active Team Status: Inactive Member Role Status Dates Dr. Ramiro Thrasher MD Primary Care Provider Active Kassidy Paul NP, AGRICULTURAL EQUIPMENT SALESPERSON-C Attending Provider Active Team Status: Inactive Member Role Status Dates Dr. Ramiro Thrasher MD Primary Care Provider Active Dr. Lio Fernandez DO Emergency Provider Active (unrecognized sect ion and content) No Status Records Found INFORMATION SOURCE (unrecogn ized section and content) DATE CREATED AUTHOR 10/11/2025 [facility] FOR RECORDS PERTAINING TO PATIENTS WHO ARE OR HAVE BEEN ENROLLED IN A CHEMICAL DEPENDENCY/SUBSTANCEABUSE PROGRAM, SOME INFORMATION MAY BE OMITTED. This clinical summary was aggregated from multiple sources. Caution should be exercised in using it in the provision of clinical care. This summary normalizes information from multiple sources, and as a consequence, information in this document may materially change the coding, format and clinical context of patient data. In addition, data may be omitted in some cases. CLINICAL DECISIONS SHOULD BE BASED ON THE PRIMARY CLINICAL RECORDS. [employer] provides no warranty or guarantee of the accuracy or completeness of information in this document.
[2025-11-22 10:42] LABS: AST(SGOT) 33 U/L (<=37); Alanine Aminotransfer ALT/SGPT 49 U/L (<=46); Albumin, Serum 4.4 g/dL (3.5-5.0); Alkaline Phosphatase 83 U/L (40-129); Anion Gap 11 (7-18); BUN 12 mg/dL (4-19); BUN/Creat Ratio 15.3 RATIO (10-20); Calcium,Total 9.8 mg/dL (7.6-11.0); Carbon Dioxide 24.9 mmol/L (20.0-29.0); Chloride 102 mmol/L (96-106); Cholesterol 148 mg/dL (<=200); Globulin 3.1 g/dL (2.2-4.2); Glucose 105 mg/dL (70-99); Low Density Lipoprotein Calc. 71 mg/dL; Potassium 4.2 mmol/L (3.5-5.1); Triglycerides 241 mg/dL; Very Low Density Lipoprotein 48 mg/dL (5-40); cholesterol:hdl ratio screen 3.95
== END | disposition home or self-care (01) ==
LOC: MTLAB 08:12
PROVIDERS: PCP Family Medicine; Referring Provider Family Medicine; Visit Provider Family Medicine
DX: Z00.00 Encounter for general adult medical examination without abnormal findings (principal)
CPT/HCPCS: 36415; 80053; 80061